=== PATIENT | female | born 1990 ===

== ENCOUNTER 2017-03-13 12:08 | Emergency (ER) | payer OTHER ==
[2017-03-13 12:23] VITALS: BMI 22.2
[2017-03-13 12:34] VITALS: RESP 18; O2SAT 100
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
[2017-03-13] MEDS ORDERED: Bacitracin Ointment 30 GM TUBE TOP STA (14:28)
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
[2017-03-13] MEDS ORDERED: Bacitracin 500 Units/gm Oint Foilpak UD ONE (14:30)
[2017-03-13 16:24] VITALS: BP 110/75; PULSE 58; TEMP 97.7
== END 2017-03-13 15:45 | disposition home or self-care (01) ==
LOC: C.ER 12:08
DX: S00.83XA Contusion of other part of head, initial encounter (principal); Y00.XXXA Assault by blunt object, initial encounter; Y92.9 Unspecified place or not applicable